=== PATIENT | female | born 1965 | race Caucasian/White ===

== ENCOUNTER 2024-01-27 15:52 | Outpatient (CLI) | payer OTHER, SELFPAY ==
--- NOTE | 2024-01-27 16:00 | CT_ITS ---
Patient: CESAR BRAUN Facility:?[facility] Patient ID:?[id number] Site Patient ID:?[id number]. Site :?[id number] Study:?CT-Sinus W/O-01/27/2024 5:18:49 PM Ordering Physician:RAHEEM Final Report: INDICATION: Chronic sinusitis. TECHNIQUE: Noncontrast CT images of the paranasal sinuses. Comparison None. FINDINGS: Postsurgical changes of endoscopic sinus surgery including bilateral maxillary antrostomy. No air-fluid levels to suggest acute sinusitis. Moderate left and minimal right maxillary sinus mucosal thickening. The maxillary sinus outflow tracts are widely patent. Minimal mucosal thickening in the frontal recesses. The frontal sinuses are otherwise clear. Minimal mucosal thickening in the ethmoid air cells. The sphenoid sinuses and sphenoethmoidal recesses are clear. The nasal septum is essentially midline. No nasal cavity masses. The mastoid air cells are clear. IMPRESSION: 1. Moderate left maxillary sinus mucosal thickening. No air-fluid levels to suggest acute sinusitis. 2. Postsurgical changes of endoscopic sinus surgery. Please note that all CT scans at this facility use dose modulation, iterative reconstruction, and/or weight-based dosing when appropriate to reduce radiation dose to as low as reasonably achievable. Dictated by Rob Baker MD @ 01/27/2024 9:39:53 PM Signed by:?Rob Baker MD @01/27/2024 9:39:53 PM (Electronic Signature)
== END 2024-01-27 15:53 | disposition home or self-care (01) ==
LOC: CT 15:54
PROVIDERS: PCP Family Medicine; Visit Provider Otolaryngology
DX: J32.9 Chronic sinusitis, unspecified (principal); J32.0 Chronic maxillary sinusitis
CPT/HCPCS: 70486

== ENCOUNTER 2024-03-31 12:15 | Outpatient (RCR) | payer OTHER, SELFPAY ==
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
== END 2024-03-31 14:44 | disposition home or self-care (01) ==
PROVIDERS: PCP Family Medicine; Visit Provider Otolaryngology
DX: M54.2 Cervicalgia (principal); Z51.89 Encounter for other specified aftercare
CPT/HCPCS: 97110; 97140; 97162; 97535